=== PATIENT | male | born 1955 | race Caucasian/White ===

== ENCOUNTER 2020-05-05 08:28 | Emergency (ER) | payer BC ==
[~2020-05-05] VITALS: Ht 170.2 cm; Wt 109.9 kg
[2020-05-05] MEDS ORDERED: IV NORMAL SALINE 1000ML BAG 1,000 ML IV SCH (08:50)
--- NOTE | 2020-05-05 09:05 | PHYS DOC ---
Past Medical History Past Medical History: Anxiety, Depression, High Cholesterol Past Surgical History: Appendectomy, Cholecystectomy Smoking Status: Current Every Day Smoker Additional Information: 7 cigarettes daily Alcohol Use: None General Adult EDM: Chief Complaint: ABDOMINAL PAIN HPI: HPI: Patient is a 64 year old male who presented to ER with left lower abdominal pain started at 6 PM yesterday. Patient feels nauseous but no vomiting. Patient denies any fever, no diarrhea, no urinary symptom. Patient denies any chest pain, no headache, no neck pain. Review of Systems: Review of Systems: Constitutional: Denies fever or chills. [] Eyes: Denies change in visual acuity. [] HENT: Denies nasal congestion or sore throat. [] Respiratory: Denies cough or shortness of breath. [] Cardiovascular: Denies chest pain or edema. [] GI: Positive for abdominal pain, nausea, no vomiting, bloody stools or diarr hea. [] : Denies dysuria. [] Musculoskeletal: Denies back pain or joint pain. [] Integument: Denies rash. [] Neurologic: Denies headache, focal weakness or sensory changes. [] Endocrine: Denies polyuria or polydipsia. [] Lymphatic: Denies swollen glands. [] Psychiatric: Denies depression or anxiety. [] Heart Score: Risk Factors: Risk Factors: DM, Current or recent (<one month) smoker, HTN, HLP, family history of CAD, obesity. Risk Scores: Score 0 - 3: 2.5% MACE over next 6 weeks - Discharge Home Score 4 - 6: 20.3% MACE over next 6 weeks - Admit for Clinical Observation Score 7 - 10: 72.7% MACE over next 6 weeks - Early Invasive Strategies Current Medications: Current Medications Medications (Trade) Dose Ordered Sig/Molina Start Time Stop Time Status Last Admin Dose Admin Sodium Chloride 1,000 ml @ 1,000 mls/hr Q1H 05/05/20 08:50 05/05/20 09:49 Allergies: Allergies: Allergies Coded Allergies Type Severity Reaction Last Updated Verified No Known Drug Allergies 05/05/20 No Physical Exam: PE: Constitutional: Well developed, well nourished, no acute distress, non-toxic appearance. [] HENT: Normocephalic, atraumatic, bilateral external ears normal, oropharynx moist, no oral exudates, nose normal. [] Eyes: PERRLA, EOMI, conjunctiva normal, no discharge. [] Neck: Normal range of motion, no tenderness, supple, no stridor. [] Cardiovascular:Heart rate regular rhythm, no murmur [] Lungs & Thorax: Bilateral breath sounds clear to auscultation [] Abdomen: Bowel sounds normal, soft, There is tenderness to palpation at LLQ area, no masses, no pulsatile masses. [] Skin: Warm, dry, no erythema, no rash. [] Back: No tenderness, no CVA tenderness. [] Extremities: No tenderness, no cyanosis, no clubbing, ROM intact, no edema. [] Neurologic: Alert and oriented X 3, normal motor function, normal sensory function, no focal deficits noted. [] Psychologic: Affect normal, judgement normal, mood normal. [] Current Patient Data: Labs: Laboratory Tests Test 05/05/20 09:20 05/05/20 09:35 Urine Collection Type Void Urine Color Marlen Urine Clarity Clear Urine pH 5.5 Urine Specific Stephens >=1.030 Urine Protein Negative mg/dL Urine Glucose (UA) Negative mg/dL Urine Ketones (Stick) Negative mg/dL Urine Blood Negative Urine Nitrite Negative Urine Bilirubin Small Urine Urobilinogen Dipstick 1.0 mg/dL Urine Leukocyte Esterase Negative Urine RBC 0 /HPF Urine WBC 1-4 /HPF Urine Squamous Epithelial Cells Few /LPF Urine Bacteria Few /HPF Urine Hyaline Casts Occasional /HPF Urine Mucus Marked /LPF White Blood Count 11.3 x10^3/uL Red Blood Count 4.42 x10^6/uL Hemoglobin 14.4 g/dL Hematocrit 41.3 % Mean Corpuscular Volume 93 fL Mean Corpuscular Hemoglobin 33 pg Mean Corpuscular Hemoglobin Concent 35 g/dL Red Cell Distribution Width 13.4 % Platelet Count 324 x10^3/uL Neutrophils (%) (Auto) 69 % Lymphocytes (%) (Auto) 22 % Monocytes (%) (Auto) 7 % Eosinophils (%) (Auto) 1 % Basophils (%) (Auto) 1 % Neutrophils # (Auto) 7.8 x10^3/uL Lymphocytes # (Auto) 2.5 x10^3/uL Monocytes # (Auto) 0.8 x10^3/uL Eosinophils # (Auto) 0.1 x10^3/uL Basophils # (Auto) 0.1 x10^3/uL Sodium Level 136 mmol/L Potassium Level 3.7 mmol/L Chloride Level 101 mmol/L Carbon Dioxide Level 28 mmol/L Anion Gap 7 Blood Urea Nitrogen 12 mg/dL Creatinine 1.0 mg/dL Estimated GFR (Cockcroft-Gault) 75.2 BUN/Creatinine Ratio 12 Glucose Level 139 mg/dL Calcium Level 8.7 mg/dL Total Bilirubin 0.7 mg/dL Aspartate Amino Transf (AST/SGOT) 18 U/L Alanine Aminotransferase (ALT/SGPT) 26 U/L Alkaline Phosphatase 61 U/L Total Protein 7.6 g/dL Albumin 3.5 g/dL Albumin/Globulin Ratio 0.9 Current Medications Medications (Trade) Dose Ordered Sig/Molina Route PRN Reason Start Time Stop Time Status Last Admin Dose Admin Sodium Chloride 1,000 ml @ 1,000 mls/hr Q1H IV 05/05/20 08:50 05/05/20 09:49 DC 05/05/20 09:50 Iohexol (Omnipaque 300 Mg/ml) 75 ml 1X ONCE IV 05/05/20 11:00 05/05/20 11:01 DC 05/05/20 11:23 Info (CONTRAST GIVEN -- Rx MONITORING) 1 each PRN DAILY PRN MC SEE COMMENTS 05/05/20 11:15 05/07/20 11:14 Morphine Sulfate (Morphine Sulfate) 4 mg 1X ONCE IV 05/05/20 11:45 05/05/20 12:07 DC Metronidazole 100 ml @ 100 mls/hr 1X ONCE IV 05/05/20 12:00 05/05/20 12:59 05/05/20 12:13 Ciprofloxacin (Cipro) 500 mg 1X ONCE PO 05/05/20 11:45 05/05/20 11:46 DC 05/05/20 12:12 Ketorolac Tromethamine (Toradol 30mg Vial) 30 mg 1X ONCE IVP 05/05/20 12:15 05/05/20 12:16 DC 05/05/20 12:11 Vital Signs: Vital Signs Date Time Temp Pulse Resp B/P (MAP) Pulse Ox O2 Delivery O2 Flow Rate FiO2 05/05/20 08:40 98.1 79 20 153/73 (99) 95 Room Air 98.1 EKG: EKG: [] Radiology/Procedures: Radiology/Procedures: [][facility] [address] [place] [address] IMAGING REPORT Signed PATIENT: SVEN EPSTEIN ACCOUNT: [id number] : 1955 LOCATION: ER AGE: 64 SEX: M EXAM STATUS: REG ER ORD. PHYSICIAN: LEX PATEL DO REASON: LLQ ABDOMINAL PAIN X 1 DAY PROCEDURE: CT ABD PELV W/ IV CONTRST ONLY Exam: CT abdomen/pelvis with intravenous contrast Indication: Left lower quadrant pain for one day Comparison: CT abdomen pelvis 06/10/2004 Technique: Helical CT imaging performed of the abdomen and pelvis after the intravenous administration of 75 mL Omnipaque 300 intravenous contrast. Sagittal and coronal reformats were obtained. One or more of the following individualized dose reduction techniques were utilized for this examination: 1. Automated exposure control 2. Adjustment of the mA and/or kV according to patient size 3. Use of iterative reconstruction technique. Findings: Lower chest: Calcified granuloma in the right lower lobe. Scattered atelectasis in the lung bases. The heart is normal in size. Liver: Normal. Gallbladder/Biliary Tree: Gallbladder is surgically absent. Bile ducts are normal. Pancreas: Normal. Spleen: No symmetrically. There are few calcified splenic granulomas. Adrenal Glands: A 2 cm right adrenal nodule and possible 1 cm left adrenal nodule are new and indeterminate. Kidneys/Ureters/Bladder: There is a 1.4 cm simple cyst in the right kidney. No hydronephrosis. Ureters and bladder are normal. Reproductive Organs: Prostate gland is normal. Stomach, small bowel, and colon: The stomach and small bowel are normal. There is sigmoid diverticulitis with mild wall thickening and pericolonic fat stranding. No perforation or abscess. The rest of the colon is normal. The appendix is not visualized. Vasculature: Abdominal aorta is normal in caliber. Mild calcified aortic atherosclerosis. Lymph Nodes: No lymphadenopathy. Peritoneum and retroperitoneum: No free fluid or free air. Bones: There is moderate osteoarthrosis of the hips. No acute fracture or suspicious osseous lesion. Impression: 1. Mild sigmoid diverticulitis. No evidence of complication. 2. New indeterminate 2 cm right adrenal gland nodule and possible 1 cm left adrenal gland nodule. Recommend CT or MRI with adrenal mass protocol to further evaluate. Electronically signed by: Anne-Marie Baumann MD (05/05/2020 11:34 AM) [id number] DICTATED and SIGNED BY: ANNE-MARIE BAUMANN MD DATE: 05/05/20 1134 Course & Med Decision Making: Course & Med Decision Making Pertinent Labs and Imaging studies reviewed. (See chart for details) Patient is a 64-year-old male who was evaluated in ER due to left lower abdominal pain, lab work was normal, CT scan his abdomen pelvic showed acute mild case of diverticulitis. Patient tolerated p.o. well, will discharge him home with p.o. Cipro and Flagyl. Patient will need to follow-up with a GI doctor for outpatient evaluation with colonoscopy. Patient is amenable to plan of care. Dragon Disclaimer: Dragon Disclaimer: This electronic medical record was generated, in whole or in part, using a voice recognition dictation system. Departure Departure Impression: Primary Impression: Diverticulitis Disposition: HOME, SELF-CARE Condition: STABLE Referrals: MALDONADO CORDON MD PLEASE CALL THIS GI SPECIALIST FOR FOLLOW UP NEXT WEEK Patient Instructions: Diverticulitis Additional Instructions: Thank you for visiting our Emergency Department. We appreciate you trusting us with your care. If any additional problems come up don't hesitate to return to visit us. Please follow up with your primary care provider so they can plan additional care if needed and know about the problem that you had. If symptoms worsen come back to the Emergency Department. Any concerning symptoms that start such as chest pain, shortness of air, weakness or numbness on one side of the body, running high fevers or any other concerning symptoms return to the ER. Scripts Metronidazole (FLAGYL) 500 Mg Tablet 1 TAB PO BID, #20 TAB Prov: LEX PATEL DO 05/05/20 Ciprofloxacin Hcl (CIPRO) 500 Mg Tablet 1 TAB PO BID for 10 Days, #20 TAB 0 Refills Prov: LEX PATEL DO 05/05/20 LEX PATEL DO May 05, 2020 09:05
[2020-05-05 09:52] LABS: BASO # 0.1 x10^3/uL (0.0-0.2); BASO % 1 % (0-3); EOS # 0.1 x10^3/uL (0.0-0.7); EOS % 1 % (0-3); HEMATOCRIT 41.3 % (39.0-53.0); HEMOGLOBIN 14.4 g/dL (13.0-17.5); LYMPH # 2.5 x10^3/uL (1.0-4.8); LYMPH % 22 % (24-48); MEAN CORPUSCULAR HEMOGLOBIN 33 pg (25-35); MEAN CORPUSCULAR HGB CONC 35 g/dL (31-37); MEAN CORPUSCULAR VOLUME 93 fL (79-100); MONO # 0.8 x10^3/uL (0.0-1.1); MONO % 7 % (0-9); NEUT # 7.8 x10^3/uL (1.8-7.7); NEUT % 69 % (31-73); PLATELET COUNT 324 x10^3/uL (140-400); RED BLOOD COUNT 4.42 x10^6/uL (4.30-5.70); RED CELL DISTRIBUTION WIDTH 13.4 % (11.5-14.5); WHITE BLOOD COUNT 11.3 x10^3/uL (4.0-11.0)
[2020-05-05 09:54] LABS: BILIRUBIN,URINE SMALL (NEG); CLARITY,URINE CLEAR; COLOR,URINE AMBER; NITRITE,URINE NEGATIVE (NEG); PH,URINE 5.5 (<5.0-8.0); PROTEIN,URINE NEGATIVE (NEG-TRACE)
[2020-05-05 10:06] LABS: RBC,URINE 0 /HPF (0-2)
[2020-05-05 10:07] LABS: BACTERIA,URINE FEW /HPF (0-FEW); HYALINE CASTS, URINE OCCASIONAL /HPF
[2020-05-05 10:35] LABS: CALCIUM 8.7 mg/dL (8.5-10.1); GFR 75.2; POTASSIUM 3.7 mmol/L (3.5-5.1)
[2020-05-05 10:43] LABS: ALBUMIN 3.5 g/dL (3.4-5.0); ALBUMIN/GLOBULIN RATIO 0.9 (1.0-1.7); TOTAL BILIRUBIN 0.7 mg/dL (0.2-1.0); TOTAL PROTEIN 7.6 g/dL (6.4-8.2)
[2020-05-05] MEDS ORDERED: IOHEXOL 300 MG/ML 100ML VIAL. IV ONE (11:00)
[2020-05-05] MEDS ORDERED: CONTRAST GIVEN. MC PRN (11:15)
--- NOTE | 2020-05-05 11:37 | RAD ---
Exam: CT abdomen/pelvis with intravenous contrast Indication: Left lower quadrant pain for one day Comparison: CT abdomen pelvis 06/10/2004 Technique: Helical CT imaging performed of the abdomen and pelvis after the intravenous administration of 75 mL Omnipaque 300 intravenous contrast. Sagittal and coronal reformats were obtained. One or more of the following individualized dose reduction techniques were utilized for this examination: 1. Automated exposure control 2. Adjustment of the mA and/or kV according to patient size 3. Use of iterative reconstruction technique. Findings: Lower chest: Calcified granuloma in the right lower lobe. Scattered atelectasis in the lung bases. The heart is normal in size. Liver: Normal. Gallbladder/Biliary Tree: Gallbladder is surgically absent. Bile ducts are normal. Pancreas: Normal. Spleen: No symmetrically. There are few calcified splenic granulomas. Adrenal Glands: A 2 cm right adrenal nodule and possible 1 cm left adrenal nodule are new and indeterminate. Kidneys/Ureters/Bladder: There is a 1.4 cm simple cyst in the right kidney. No hydronephrosis. Ureters and bladder are normal. Reproductive Organs: Prostate gland is normal. Stomach, small bowel, and colon: The stomach and small bowel are normal. There is sigmoid diverticulitis with mild wall thickening and pericolonic fat stranding. No perforation or abscess. The rest of the colon is normal. The appendix is not visualized. Vasculature: Abdominal aorta is normal in caliber. Mild calcified aortic atherosclerosis. Lymph Nodes: No lymphadenopathy. Peritoneum and retroperitoneum: No free fluid or free air. Bones: There is moderate osteoarthrosis of the hips. No acute fracture or suspicious osseous lesion. Impression: 1. Mild sigmoid diverticulitis. No evidence of complication. 2. New indeterminate 2 cm right adrenal gland nodule and possible 1 cm left adrenal gland nodule. Recommend CT or MRI with adrenal mass protocol to further evaluate. Electronically signed by: Anne-Marie Baumann MD (05/05/2020 11:34 AM) [id number]
[2020-05-05] MEDS ORDERED: CIPROFLOXACIN HCL 250 MG TABLET. PO ONE (11:45)
[2020-05-05] MEDS ORDERED: MORPHINE SULFATE 4 MG/ML VIAL. IV ONE (11:45)
[2020-05-05] MEDS ORDERED: KETOROLAC 30 MG/ML VIAL. IVP ONE (12:15)
[2020-05-05 12:40] VITALS: BP 144/77
[2020-05-05] MEDS ORDERED: CIPR500T94 PO (12:41)
[2020-05-05] MEDS ORDERED: METR500T PO (12:41)
== END 2020-05-05 13:31 | disposition home or self-care (01) ==
LOC: ER 08:28
DX: K57.32 Diverticulitis of large intestine without perforation or abscess without bleeding (principal); R10.32 Left lower quadrant pain; R11.0 Nausea; F41.9 Anxiety disorder, unspecified; E78.00 Pure hypercholesterolemia, unspecified; F32.9 Major depressive disorder, single episode, unspecified; F17.210 Nicotine dependence, cigarettes, uncomplicated; Z90.89 Acquired absence of other organs; Z90.49 Acquired absence of other specified parts of digestive tract
CPT/HCPCS: 36415; 74177; 80053; 81001; 85025; 96361; 96365; 96375; 99285; J1885; J3490; J7030; Q9967